=== PATIENT | female | born 1940 | race Caucasian/White ===

== ENCOUNTER 2019-07-11 13:28 | Outpatient (CLI) | payer MEDICARE, BC ==
--- NOTE | 2019-07-11 14:59 | MRI ---
MRI OF THE LUMBAR SPINE WITHOUT CONTRAST: 07/11/19 COMPARISON: Lumbar stenosis with low back pain that radiates down both legs with numbness in the digits of the bi lateral feet. TECHNIQUE: Multiplanar and multisequence MRI images were obtained of the lumbar spine without contrast. FINDINGS: Generalized disc desiccation is seen. There is subtle grade I anterolisthesis of L4 on L5 and of L5 o n S1. The conus medullaris terminates normally at L1. There is a focus of high T2 signal in the left kidney which likely represents a cyst. The other prevertebral and paraspinal soft tissues are unremar kable. T12-L1: There is a small disc osteophyte complex. No posterior facet arthrosis. Mild central canal st enosis. Mild bilateral neural foraminal stenosis. L1-2: Unremarkable. L2-3: Unremarkable. L3-4: There is a small generalized concentric disc bulge. No posterior facet arthrosis. Mild central canal stenosis. Mild bilateral neural foraminal stenosis. L4-5: There is a moderate disc osteophyte complex. Severe bilateral posterior facet arthrosis. Severe central canal stenosis. Moderate to severe bilateral neural foraminal stenosis, left greater than ri ght. L5-S1: There is a moderate disc osteophyte complex. Severe bilateral posterior facet arthrosis. Mild to moderate central canal stenosis. Moderate left and mild right neural foraminal stenosis. IMPRESSION: Degenerative changes of the lumbar spine as above, greatest at L4-5 and L5-S1. POS: [facility]
== END 2019-07-11 13:29 | disposition home or self-care (01) ==
LOC: BICMRI 13:28
PROVIDERS: ATTEND Anesthesiology Pain Medicine
DX: M48.062 Spinal stenosis, lumbar region with neurogenic claudication (principal); M47.816 Spondylosis without myelopathy or radiculopathy, lumbar region; M47.817 Spondylosis without myelopathy or radiculopathy, lumbosacral region
CPT/HCPCS: 72148

== ENCOUNTER 2019-10-25 05:19 | Outpatient (CLI) | payer MEDICARE, BC, OTHER ==
[2019-10-25 16:29] LABS: INR-International Normal Ratio 0.9; PTT 31.1 sec (22.9-36.1); Prothrombin Time 12.2 sec (12.0-14.7)
[2019-10-25 16:45] LABS: Hemoglobin 13.7 g/dL (12.0-16.0); Mean Corpuscular HGB CONC 32.9 g/dL (32.0-36.0); Mean Corpuscular Hemoglobin 30.7 pg (27.0-31.0); Mean Corpuscular Volume 93.4 fL (78.0-98.0); Mean Platelet Volume 9.2 fL (7.4-10.4); Platelet Count 270 thou/uL (130-400); RBC Distribution Width 11.7 % (11.5-14.5); Red Blood Cell (RBC) Count 4.46 mill/uL (4.20-5.40)
[2019-10-25 17:30] LABS: Anion Gap 12 mmol/L (10-20); BUN (Urea Nitrogen) 17 mg/dL (9.8-20.1); Calc. Creatinine Clearance 0 mL/min (70-130); Calcium 9.8 mg/dL (7.8-10.44); Carbon Dioxide 25 mmol/L (23-31); Chloride 106 mmol/L (98-107); Estimated GFR-MDRD 62; Glucose 104 mg/dL (83-110); Potassium 4.3 mmol/L (3.5-5.1); Sodium 139 mmol/L (136-145)
[2019-10-26 12:37] LABS: SARS-CoV-2 MS2 Positive; SARS-CoV-2 N Gene Negative; SARS-CoV-2 S Gene Negative; SARS-CoV-2 orf1ab Negative
== END 2019-10-25 05:20 | disposition home or self-care (01) ==
LOC: LABBT 05:19
PROVIDERS: ATTEND Surgery
DX: Z01.818 Encounter for other preprocedural examination (principal); Z11.59 Encounter for screening for other viral diseases; M43.16 Spondylolisthesis, lumbar region; M54.16 Radiculopathy, lumbar region; M48.061 Spinal stenosis, lumbar region without neurogenic claudication
CPT/HCPCS: 80048; 85027; 85610; 85730; 93005; U0003; 87635; 93010

== ENCOUNTER 2019-10-29 07:59 | Day surgery (SDC) | payer MEDICARE, BC ==
[2019-10-29] MEDS ORDERED: Fentanyl 100 MCG/2 ML VIAL ONE ×3 (08:53→12:55)
[2019-10-29] MEDS ORDERED: Thrombin 5000 UNITS/5 ML VIAL ONE (08:56)
[2019-10-29] MEDS ORDERED: Sodium Chloride 0.9% 10 ML ONE (08:56)
[2019-10-29] MEDS ORDERED: Promethazine HCl 25 MG/ML VIAL SLOW IVP PRN (12:22)
[2019-10-29] MEDS ORDERED: tiZANidine HCl 4 MG TAB PO PRN (12:22)
[2019-10-29] MEDS ORDERED: Milk Of Magnesia 30 ML UDCUP PO PRN (12:22)
[2019-10-29] MEDS ORDERED: Bisacodyl 10 MG SUPP PR PRN (12:22)
[2019-10-29] MEDS ORDERED: Ondansetron PF 4 MG/2 ML Vial IVP PRN (12:22)
[2019-10-29] MEDS ORDERED: Fleet Enema 133 ML BOT PR PRN (12:22)
[2019-10-29] MEDS ORDERED: Ondansetron HCl/PF 4 MG/2 ML Vial IVP PRN (12:22)
[2019-10-29] MEDS ORDERED: diphenhydrAMINE 25 MG CAP PO PRN (12:22)
[2019-10-29] MEDS ORDERED: Promethazine HCl 25 MG/ML VIAL IM PRN (12:22)
[2019-10-29] MEDS ORDERED: Acetaminophen 325 MG TAB PO PRN (12:22)
[2019-10-29] MEDS ORDERED: traMADol HCl 50 MG TAB PO PRN (12:22)
[2019-10-29] MEDS ORDERED: hydrALAZINE 20 MG/ML VIAL SLOW IVP PRN (12:27)
[2019-10-29] MEDS ORDERED: Ondansetron PF 4 MG/2 ML Vial ONE (12:48)
[2019-10-29] MEDS ORDERED: PROPOFOL 200 MG/20 ML VIAL ONE (12:48)
[2019-10-29] MEDS ORDERED: Rocuronium Bromide 10 MG/ML (10ML VIAL) ONE (12:48)
[2019-10-29] MEDS ORDERED: Lidocaine 1% PF 5 ML VIAL ONE (12:48)
[2019-10-29] MEDS ORDERED: Glycopyrrolate 0.2 MG/ML 5 ML SYRINGE ONE ×2 (12:48)
[2019-10-29] MEDS ORDERED: PHENYLEPHRINE-NS 100 MCG/ML 10 ML SYRINGE ONE (12:48)
[2019-10-29] MEDS ORDERED: Ketorolac Tromethamine 30 MG/ML VIAL ONE (12:48)
[2019-10-29] MEDS ORDERED: Promethazine HCl 25 MG/ML VIAL ONE (13:08)
--- NOTE | 2019-10-29 14:11 | OP ---
DATE OF PROCEDURE: 10/29/2019 LOCATION: OR 12. [employer] COLLECTOR: Jodi Dukes PA-C PREPROCEDURE DIAGNOSIS: Lumbar stenosis with lumbar spondylolisthesis and low back and right leg pain with possible synovial cyst, right L4-L5. POSTPROCEDURE DIAGNOSIS: Lumbar stenosis with spondylolisthesis with confirmed right L4-L5 synovial cyst and spondylolisthesis. PROCEDURES PERFORMED: 1. L3-L4 and L5-S1 laminectomies, partial facetectomies, foraminotomies. 2. Right L4-L5 synovial cyst resection. 3. Left L4-L5 hemilaminotomy, foraminotomy, decompression of the traversing left L5 nerve root. 4. L4-L5 in situ posterolateral fusion with local bone autograft obtained with same incision and allograft. DESCRIPTION OF PROCEDURE: After informed consent was obtained from the patient, the patient was brought to the OR. Proper patient, pause, and identification were carried out. She was placed under excellent general endotracheal anesthesia and positioned prone on the OR table. A small incision was drawn out dorsally from L3 through S1. This region was sterilely cleansed, prepared, and draped. Proper patient, pause, and identification were carried out. The wound was then opened with a combination of sharp, monopolar, and blunt dissection. The L3-L4, L5-S1 dorsal spines and lamina were exposed. Localization film confirmed area of interest. We then performed L3 laminectomy, partial facetectomy, and foraminotomy as well as L5-S1 laminectomy, partial facetectomy, and foraminotomy. It became quite clear when I began the decompression at the L4-L5 segment on the right side, she had a synovial cyst that was significantly adherent to the dura. This appeared to be partially calcified as suspected on my preoperative note, but it was not possible to really confirm synovial cyst based on the MRI, but this was certainly present intraoperatively. I gently meticulously dissected the right L4-L5 synovial cyst off the dura and completely decompressed the traversing right L5 nerve root. I then turned my attention to a left L4-L5 hemilaminotomy, foraminotomy, and partial facetectomy as there was no evidence of a synovial cyst on the left side. We then did posterolateral arthrodesis initiation, decortication over the L4-L5 lateral masses, facet complexes bilaterally and packed this area with local bone autograft obtained with same incision and allograft to initiate arthrodesis in the form of an in situ fusion. Copious irrigation occurred throughout as did maximizing hemostasis. The wound was then closed in anatomic layers following sprinkling of vancomycin powder. The patient emerged from anesthesia. Job ID: [id number]
[2019-10-29] MEDS: Morphine 2 MG/ML VIAL SLOW IVP PRN ×2 (14:46→22:07)
[2019-10-29 17:17] VITALS: BMI 22.6
[2019-10-29] MEDS: HYDROcodone/Acetaminophen 7.5/325 mg Tablet PO PRN (18:45)
[2019-10-29] MEDS: Sodium Chloride 0.9% 1,000 ML IV SCH (18:46)
[2019-10-29] MEDS: CEFAZOLIN 2 GM in Premix Bag 1 BAG IVPB SCH (18:47)
[2019-10-29] MEDS ORDERED: Tamsulosin HCl 0.4 MG CAP PO SCH (21:45)
[2019-10-29] MEDS: Mag-Al 1200 mg/1200 mg/30 ML UDCUP PO PRN (22:07)
[2019-10-30] MEDS: CEFAZOLIN 2 GM in Premix Bag 1 BAG IVPB SCH (02:13)
[2019-10-30] MEDS: Morphine 2 MG/ML VIAL SLOW IVP PRN (05:45)
[2019-10-30] MEDS: Sodium Chloride 0.9% 1,000 ML IV SCH ×3 (05:47→21:44)
[2019-10-30] MEDS: Amlodipine 10 MG TAB PO SCH (08:58)
[2019-10-30] MEDS: Cholecalciferol 1,000 UNITS (25 MCG) TAB PO SCH (08:59)
[2019-10-30] MEDS ORDERED: Biotin [Biotin] 1 MG PO SCH (09:00)
[2019-10-30] MEDS: Lisinopril 20 MG TAB PO SCH (09:01)
[2019-10-30] MEDS: Vitamin A 10,000 UNITS CAP PO SCH (10:08)
[2019-10-30] MEDS: Stress 600 With Zinc 1 TAB PO SCH (10:08)
[2019-10-30] MEDS: Ubidecarenone 50 MG CAP PO SCH (10:08)
[2019-10-30] MEDS: Mag-Al 1200 mg/1200 mg/30 ML UDCUP PO PRN (21:32)
[2019-10-30] MEDS: HYDROcodone/Acetaminophen 7.5/325 mg Tablet PO PRN (21:32)
[2019-10-31] MEDS: Morphine 2 MG/ML VIAL SLOW IVP PRN (05:35)
[2019-10-31] MEDS: Amlodipine 10 MG TAB PO SCH (09:54)
[2019-10-31] MEDS: Stress 600 With Zinc 1 TAB PO SCH (09:55)
[2019-10-31] MEDS: Cholecalciferol 1,000 UNITS (25 MCG) TAB PO SCH (09:55)
[2019-10-31] MEDS: Vitamin A 10,000 UNITS CAP PO SCH (09:55)
[2019-10-31] MEDS: Lisinopril 20 MG TAB PO SCH (09:55)
[2019-10-31] MEDS: Ubidecarenone 50 MG CAP PO SCH (09:55)
[2019-10-31] MEDS: Sodium Chloride 0.9% 1,000 ML IV SCH ×2 (10:00→17:02)
--- NOTE | 2019-10-31 12:59 | PRG ---
DATE OF SERVICE: 10/31/2019 Ms. Viveros is postoperative day 1 from lumbar decompression and in situ fusion. She is doing well this morning with resolution in her leg pain. She has mobilized. She is voiding. Her daughter is at home. The disposition will either be hopefully tomorrow, home with home health versus inpatient rehab. Job ID: [id number]
[2019-10-31] MEDS: HYDROcodone/Acetaminophen 7.5/325 mg Tablet PO PRN (15:57)
[2019-11-01] MEDS: HYDROcodone/Acetaminophen 7.5/325 mg Tablet PO PRN ×2 (02:34→12:58)
[2019-11-01] MEDS: Amlodipine 10 MG TAB PO SCH (09:38)
[2019-11-01] MEDS: Sodium Chloride 0.9% 1,000 ML IV SCH ×2 (09:38→12:55)
[2019-11-01] MEDS: Lisinopril 20 MG TAB PO SCH (09:39)
[2019-11-01] MEDS: Ubidecarenone 50 MG CAP PO SCH (09:39)
[2019-11-01] MEDS: Cholecalciferol 1,000 UNITS (25 MCG) TAB PO SCH (09:39)
[2019-11-01] MEDS: Stress 600 With Zinc 1 TAB PO SCH (09:39)
[2019-11-01] MEDS: Vitamin A 10,000 UNITS CAP PO SCH (09:40)
--- NOTE | 2019-11-01 10:37 | PRG ---
DATE OF SERVICE: 11/01/2019 Ms. Viveros is doing well, postoperative day 3 from lumbar decompression and in situ fusion. She does have somewhat lower saturation today of oxygen at 90% on room air. She is doing her incentive spirometry. I would like to get an ultrasound of her lower extremities. She needs inpatient rehab, and she agrees. Evidently, there is a wait list. Hopefully, this will be resolved today. Job ID: [id number]
--- NOTE | 2019-11-01 11:13 | ULT ---
EXAM: Bilateral lower extremity venous ultrasound HISTORY: Immobilization with low oxygen saturation. Bilateral lower extremity edema. COMPARISON: None TECHNIQUE: Multiplanar grayscale and color Doppler images were obtained in a bilateral lower extremit y venous ultrasound. Spectral analysis of the Doppler waveforms were performed. FINDINGS: The bilateral common femoral vein, profunda femoral veins, superficial femoral veins, and p opliteal veins are normal in appearance without visible thrombus. These vessels demonstrate normal compression, flow, and augmentation. The bilateral posterior tibial veins and greater saphenous veins are patent without evidence of throm bus. IMPRESSION: No evidence of DVT.
[2019-11-02] MEDS: HYDROcodone/Acetaminophen 7.5/325 mg Tablet PO PRN ×3 (02:01→15:36)
[2019-11-02] MEDS: Sodium Chloride 0.9% 1,000 ML IV SCH (02:03)
[2019-11-02] MEDS: Lisinopril 20 MG TAB PO SCH (08:48)
[2019-11-02] MEDS: Cholecalciferol 1,000 UNITS (25 MCG) TAB PO SCH (08:49)
[2019-11-02] MEDS: Amlodipine 10 MG TAB PO SCH (08:49)
[2019-11-02] MEDS: Vitamin A 10,000 UNITS CAP PO SCH (08:50)
[2019-11-02] MEDS: Ubidecarenone 50 MG CAP PO SCH (08:50)
[2019-11-02] MEDS: Stress 600 With Zinc 1 TAB PO SCH (09:17)
--- NOTE | 2019-11-02 12:51 | DIS ---
DATE OF ADMISSION: 10/29/2019 DATE OF DISCHARGE: 11/02/2019 Ms. Viveros was admitted to [facility]. Dr. Israel Duffy in the postoperative period. ADMISSION DIAGNOSIS: Lumbar laminectomy status post . There were only minor complications with her hospital stay . Consultations ultimately were ordered to Case Management, Physical therapy and occupational therapy and it was determined to be best fit for inpatient rehab stay. This was worked up and ultimately she was approved, the bed became available on Monday, November 01, and she was discharged there with outpatient followup planned in 2 weeks in excellent condition. Job ID: [id number]
[2019-11-02 16:12] VITALS: BP 114/69; TEMP 98.1
== END 2019-11-02 17:52 ==
LOC: SDC 07:59 → T4-A 12:22 → SDC 11-02 17:52
PROVIDERS: ATTEND Surgery
PROC: 01NB0ZZ Release Lumbar Nerve, Open Approach (ICD-10-PCS; principal; 2019-10-29)
PROC: 0SG0071 Fusion of Lumbar Vertebral Joint with Autologous Tissue Substitute, Posterior Approach, Posterior Column, Open Approach (ICD-10-PCS; 2019-10-29)
PROC: 01NB0ZZ Release Lumbar Nerve, Open Approach (ICD-10-PCS; 2019-10-29)
DX: M43.16 Spondylolisthesis, lumbar region (principal); M48.061 Spinal stenosis, lumbar region without neurogenic claudication; M71.38 Other bursal cyst, other site; M54.16 Radiculopathy, lumbar region; Z79.899 Other long term (current) drug therapy; Z88.5 Allergy status to narcotic agent
CPT/HCPCS: 20930; 20936; 22612; 63047; 63048; 63267; 76000; 93970; 97116 ×3; 97139 ×5; 97530; 97535; C1713; J2270 ×3; L0639; J0690; J1885; J2405; J2550; J2704; J3010; J3370; J3490